=== PATIENT | female | born 1950 | race Caucasian/White ===

== ENCOUNTER 2022-02-02 07:12 | Day surgery (SDC) | payer MEDICARE, OTHER ==
[~2022-02-02] VITALS: Ht 147.3 cm; Wt 82.1 kg
[~2022-02-02 07:12] MED LIST: ADVIL100 M1 PO; ASPIR 8181 MG PO; CALCIUM500 MG PO; CALTRATE 600 +1 EAC1 PO; CLARITIN10 M2 PO; DAILY VALUE1 EACH PO; DETROL1 MG PO; DICLOFENAC SOD100 G1 TOP; DULOXETINE HCL30 MG PO; GLUCOSAMINE CH PO; HAIR, SKIN & N1 EACH PO; JOINT HEALTH T1 EACH PO; LIPITOR10 MG PO; LOTENSIN20 MG PO; MELATONIN10 MG PO; MULTIVITAMINS1 EAC7 PO; PATADAY2.5 ML OPTH; PROBIOTIC1 EAC2 PO; PROTONIX40 MG PO; SLOW-MAG71.5 MG PO; SYSTANE 0.3-0.1 EACH OPTH; TOPROL XL25 MG PO; VITAMIN D3125 MC3 PO
--- NOTE | 2022-02-02 09:18 | NUR ---
02/02/22 0918 Charles Edmond RESPONDS TO TAP AND VOICE. ORIENTED TO TIME AND SITUATION. dENIES NAUSEA OR PAIN.
--- NOTE | 2022-02-03 08:32 | OR ---
[facility] [address], [place] [address] Signed DATE OF OPERATION: 02/02/2022 SURGEON: Christina Davenport MD PREOPERATIVE DIAGNOSES: 1. Mother with a history of colonic polyps. 2. Diverticulosis. 3. Internal hemorrhoids. POSTOPERATIVE DIAGNOSES: 1. 4 mm polyp cecum/periappendiceal orifice. 2. 7 mm sessile polyp at 4 cm (snare, clip, tattoo). 3. Moderate sigmoid diverticulosis. 4. Minimal to moderate internal hemorrhoids. PROCEDURE: Colonoscopy with snare polypectomy, hot biopsy, application of clip and injection of tattoo. ESTIMATED BLOOD LOSS: Minimal. INDICATIONS: Yani is a 71-year-old female, asked to see me for a followup colonoscopy. Her mother had colonic polyps removed in the past. She recalls her mother underwent two separate colectomies while living in [place]. Apparently one is for a blockage and the 2nd one for a volvulus. Her mother is now 93 years old and still alive. Yani had a negative colonoscopy in 2002 at the age of 51 [address] Karson Brownlee. I helped her with a colonoscopy in 2006 at the age of 55. She had diverticulosis. She did well with Versed and fentanyl. She came back in 2017 at the age of 65. She had moderate diverticulosis and internal hemorrhoids. Again, she did well with Versed and fentanyl. We asked her to follow up in 5 years. In the office, I had given her a pamphlet on colonoscopy. She understands the nature of the test. There is risk including, but not limited to gas bloating, crampy abdominal pain, bleeding, perforation requiring surgery, and missed diagnosis. We also reviewed the need for IV conscious sedation. She had expressed understanding and wished to proceed. PROCEDURE NOTE: Yani was taken into our endoscopy suite and placed in the left lateral decubitus position. She was given a total of 7 mg of Versed and 150 mcg of fentanyl. A digital Electronically Signed By: CHRISTINA DAVENPORT MD 02/03/22 0832 PATIENT NAME: YANI MELGAR OPERATIVE REPORT DATE OF : 50 REPORT #: [id number] PHYSICIAN: CHRISTINA DAVENPORT MD PCP: BONNIE GALLOWAY DO REPORT IS CONFIDENTIAL AND NOT TO BE RELEASED WITHOUT AUTHORIZATION [facility] [address], [place] [address] Signed rectal exam was performed and this was unremarkable. She had good sphincter tone. No external hemorrhoids. There were no masses. The adult colonoscope had been introduced and advanced all around into the cecum under direct visualization of the camera without difficulty. She needed just a little extra sedation as we came through the colon. Her prep was quite good. We could easily see the appendiceal orifice and the ileocecal valve. We had taken pictures throughout for photodocumentation. Next to the appendiceal orifice and the base of the cecum, was a small 4 mm polyp. This was removed easily with a hot biopsy forceps. The scope was then slowly withdrawn. She indeed has moderate sigmoid diverticulosis. They are moderate in size, moderate in number, and scattered about. We found a 7 mm sessile polyp at 4 cm up from the anal verge. This is ever so slightly above the anal canal. We used the snare to remove it in two pieces and suctioned through the scope. We used the hot biopsy forceps or some cautery. We then applied a single clip on the inferior edge of that polypectomy site with good hemostasis. We then injected some tattoo underneath the area. The scope was then retroflexed and we could see that she does have minimal to moderate internal hemorrhoids. After this, the gas was suctioned out and the colonoscope removed. Yani tolerated the procedure quite well. RECOMMENDATIONS: I will see Yani back in my office in 7 to 14 days to review her results. Christina Davenport MD ALB/MODL /[id number] cc: DO Christina Lucia MD Copies: BONNIE GALLOWAY ANDREW L MD ~ Electronically Signed By: CHRISTINA DAVENPORT MD 02/03/22 0832 PATIENT NAME: YANI MELGAR OPERATIVE REPORT DATE OF : 50 REPORT #: [id number] PHYSICIAN: CHRISTINA DAVENPORT MD PCP: BONNIE GALLOWAY DO REPORT IS CONFIDENTIAL AND NOT TO BE RELEASED WITHOUT AUTHORIZATION
== END 2022-02-02 09:42 | disposition home or self-care (01) ==
LOC: DS 07:12
PROVIDERS: ATTEND Colon & Rectal Surgery
PROC: 0DBE8ZX Excision of Large Intestine, Via Natural or Artificial Opening Endoscopic, Diagnostic (ICD-10-PCS; 2022-02-02)
PROC: 0DBH8ZX Excision of Cecum, Via Natural or Artificial Opening Endoscopic, Diagnostic (ICD-10-PCS; principal; 2022-02-02 08:15)
DX: Z12.11 Encounter for screening for malignant neoplasm of colon (principal); D12.0 Benign neoplasm of cecum; D12.8 Benign neoplasm of rectum; K57.30 Diverticulosis of large intestine without perforation or abscess without bleeding; K64.0 First degree hemorrhoids; Z83.71 Family history of colonic polyps; I10 Essential (primary) hypertension; E78.5 Hyperlipidemia, unspecified; K21.9 Gastro-esophageal reflux disease without esophagitis; G47.33 Obstructive sleep apnea (adult) (pediatric); E66.9 Obesity, unspecified; E89.0 Postprocedural hypothyroidism; Z88.8 Allergy status to other drugs, medicaments and biological substances; Z68.37 Body mass index [BMI] 37.0-37.9, adult
CPT/HCPCS: 88305; 99153; G0500; J2250; J3010; J7121

== ENCOUNTER 2025-02-05 14:05 | Emergency (ER) | payer MEDICARE, OTHER ==
[~2025-02-05] VITALS: Ht 147.3 cm; Wt 89.0 kg
[~2025-02-05 14:05] MED LIST changes: +ASPIRIN325 MG PO; +OXYCODONE HCL5 MG PO; +TRAMADOL HCL50 MG PO
[2025-02-05 17:36] LABS: BASOPHILS 0.7 % (0.1-1.2); EOSINOPHILS 1.5 % (0.7-5.8); LYMPHOCYTES 39.2 % (19.3-51.7); MCH 31.8 PG (25.6-32.2); MCHC 33.0 g/dL (32.2-35.5); MCV 96.4 fL (79.4-94.8); MONOCYTES 13.1 % (4.7-12.5); NEUTROPHILS 45.3 % (34.0-71.1); RBC 4.21 M/uL (3.93-5.22)
[2025-02-05 17:54] LABS: ALT (SGPT) 17.0 U/L (14-59); AST (SGOT) 14.0 U/L (15-37); GLOMERULAR FILTRATION RATE,EST 66.0 mL/min (>60); PROTEIN, TOTAL 7.0 g/dL (6.4-8.2); UREA NITROGEN 27.0 mg/dL (7-18)
[2025-02-05 18:25] VITALS: BP 155/58
== END 2025-02-05 18:26 | disposition home or self-care (01) ==
LOC: ED 14:05
PROVIDERS: Emergency Medicine
DX: L53.9 Erythematous condition, unspecified (principal); I10 Essential (primary) hypertension; Z88.8 Allergy status to other drugs, medicaments and biological substances; Z79.82 Long term (current) use of aspirin; Z79.899 Other long term (current) drug therapy; R60.1 Generalized edema
CPT/HCPCS: 36415; 80053; 85025; 93971; 99284-25